=== PATIENT | female | born 1950 | race Caucasian/White ===

== ENCOUNTER → 2017-01-16 | Outpatient (CLI) | payer BC ==
[~2017-01-16] MED LIST: ASCO500T8 PO; ASPI-496 PO; CHOL200024 PO; GLIP2.5T3 PO; LISI1TAB5 PO; METF10002 PO; OMEG1CAP34 PO; OMEG1CAP83 PO; ZINC50CA PO; estradiol VG
[2017-01-16 15:47] LABS: ASPARTATE AMINO TRANSFERASE 16 U/L (15-37); BLOOD UREA NITROGEN 32 mg/dL (7-18)
== END | disposition home or self-care (01) ==
LOC: STAR 14:11
PROVIDERS: ATTEND Orthopaedic Surgery
DX: Z01.818 Encounter for other preprocedural examination (principal); M75.121 Complete rotator cuff tear or rupture of right shoulder, not specified as traumatic; M75.41 Impingement syndrome of right shoulder
CPT/HCPCS: 36415; 80053; 93005

== ENCOUNTER 2017-01-23 05:24 | Day surgery (SDC) | payer BC ==
[~2017-01-23] VITALS: Ht 163.8 cm; Wt 74.3 kg
[2017-01-23] MEDS ORDERED: LACTATED RINGERS 1,000 ML IV SCH (05:59)
[2017-01-23 06:00] VITALS: BP 140/83
[2017-01-23] MEDS ORDERED: BUPIVACAINE/PF 0.25% ONE (06:22)
[2017-01-23] MEDS ORDERED: EPINEPHRINE 1 MG/ML, 1ML ONE (06:22)
[2017-01-23] MEDS ORDERED: METOCLOPRAMIDE 5 MG/ML, 2ML ONE (06:58)
[2017-01-23] MEDS ORDERED: PROPOFOL 10 MG/ML, 20ML ONE (06:58)
[2017-01-23] MEDS ORDERED: KETOROLAC 30 MG/1 ML ONE (06:58)
[2017-01-23] MEDS ORDERED: CEFAZOLIN 1,000 MG ONE (06:58)
[2017-01-23] MEDS ORDERED: DEXAMETHASONE 4 MG/ML, 1ML ONE (06:58)
[2017-01-23] MEDS ORDERED: ONDANSETRON 2MG/ML, 2ML ONE ×2 (06:58→08:29)
[2017-01-23] MEDS ORDERED: EPHEDRINE 50 MG/ML, 1ML ONE (06:58)
[2017-01-23] MEDS ORDERED: FENTANYL PF 100 MCG/2ML ONE (07:09)
[2017-01-23] MEDS ORDERED: hydrALAzine 20 MG/ML, 1ML IV PRN (08:00)
[2017-01-23] MEDS ORDERED: ONDANSETRON 2MG/ML, 2ML IVPush PRN (08:00)
[2017-01-23] MEDS ORDERED: OXYcodone 5 MG/5 ML ORAL.SOL UDC PO PRN (08:00)
[2017-01-23] MEDS ORDERED: PROMETHAZINE 25 MG/ML, 1ML IV PRN (08:00)
[2017-01-23] MEDS ORDERED: FENTANYL PF 100 MCG/2ML IV PRN (08:00)
[2017-01-23] MEDS ORDERED: ACETAMINOPHEN 325 MG TABLET PO PRN (08:00)
[2017-01-23] MEDS ORDERED: MIDAZOLAM 1 MG/ML, 2ML IV PRN (08:00)
[2017-01-23] MEDS ORDERED: HYDROmorphone 1 MG/ML, 1ML IV PRN (08:00)
[2017-01-23] MEDS ORDERED: LABETALOL 5MG/ML, 20ML IV PRN (08:00)
== END 2017-01-23 10:30 ==
LOC: OUT 05:24
PROVIDERS: ATTEND Orthopaedic Surgery
DX: S43.431A Superior glenoid labrum lesion of right shoulder, initial encounter (principal); S46.111A Strain of muscle, fascia and tendon of long head of biceps, right arm, initial encounter; M75.111 Incomplete rotator cuff tear or rupture of right shoulder, not specified as traumatic; M75.41 Impingement syndrome of right shoulder; Z79.82 Long term (current) use of aspirin; X58.XXXA Exposure to other specified factors, initial encounter; Y93.89 Activity, other specified; Y92.89 Other specified places as the place of occurrence of the external cause; Y99.8 Other external cause status
CPT/HCPCS: 29823; 29826; 29827; 82962; C1713; J0171; J0690; J1100; J1885; J2405; J2704; J2765; J3010; J3490; J7120